=== PATIENT | female | born 1995 | race Caucasian/White ===

== ENCOUNTER 2016-08-21 13:08 | Outpatient (CLI) | payer OTHER ==
[2016-08-21] MEDS ORDERED: BUFFERED LIDOCAINE 10 ML SYRINGE IU ONE (15:06)
[2016-08-21] MEDS ORDERED: IOTHALAMATE MEGLUMINE 50 ML VIAL IVP ONE (15:06)
[2016-08-21] MEDS ORDERED: GADOPENTETATE DIMEGLUMINE 5 ML VIAL IVP ONE (15:06)
== END 2016-08-21 13:09 | disposition home or self-care (01) ==
DX: S42.291A Other displaced fracture of upper end of right humerus, initial encounter for closed fracture (principal); S43.491A Other sprain of right shoulder joint, initial encounter
CPT/HCPCS: 23350; 73222; 77002; Q9961

== ENCOUNTER 2017-06-12 17:15 | Emergency (ER) | payer OTHER ==
--- NOTE | 2017-06-12 17:45 | ED Physician Documentation ---
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 Over the last month she has had what feels like a spasm in the right low back which does not radiate. There is no weakness, numbness, or tingling in the extremities or saddle area. No fevers. There was no specific injury.) Review of Systems Constitutional: denies: Fever, Chills Respiratory: denies: Dyspnea, Cough GI: denies: Abdominal Pain, Nausea, Vomiting PD PAST MEDICAL HISTORY - Past Medical History Past Medical History: No - Past Surgical History Past Surgical History: Yes Ortho: Shoulder arthroplasty - Present Medications Home Medications: Ambulatory Orders Medication Instructions Recorded Confirmed Cyclobenzaprine [Flexeril] 10 mg PO TID PRN #20 tablet 06/12/17 Ibuprofen [Motrin] 800 mg PO Q8H PRN #30 tablet 06/12/17 - Allergies Allergies/Adverse Reactions: Allergies Allergy/AdvReac Type Severity Reaction Status Date / Time No Known Drug Allergies Allergy Verified 06/12/17 17:29 - Social History Does the pt smoke?: No Smoking Status: Never smoker Does the pt drink ETOH?: No Does the pt have substance abuse?: No - Immunizations Immunizations are current?: Yes - POLST Patient has POLST: No PD ED PE NORMAL - Vitals Vital signs reviewed: Yes - General General: Alert and oriented X 3, No acute distress - Back Back: No CVA TTP, No spinal TTP, Other (Tender to the right paralumbar musculature with palpable spasm) - Extremities Extremities: Other (The patient has equal and normal Achilles and patellar reflexes bilaterally. Normal sensation in all areas of the legs. Patient denies saddle anesthesia. Normal strength in flexion-extension at the ankles, knees, and flexion of the hips.) - Neuro Neuro: Alert and oriented X 3, Normal speech Results - Vitals Vitals: Vital Signs - 24 hr 06/12/17 17:27 Temperature 36.7 C Heart Rate 70 Respiratory 18 Rate O2 Saturation 100 Oxygen O2 Source Room air PD MEDICAL DECISION MAKING - ED course ED course: This patient has seemingly uncomplicated musculoskeletal back pain. The patient has no "red flags." Specifically denies IV drug use, fevers, incontinence, saddle anesthesia. Spinal epidural abscess was considered, given that the patient has no fever, is not diabetic, has no spinal tenderness, does not use IV drugs, and has no bilateral neurologic symptoms, the diagnosis of spinal epidural abscess is considered exceedingly unlikely. The [place] prescription monitoring program was queried with regard to this patient. No concerning findings were found. Departure - Departure Disposition: 01 Home, Self Care Clinical Impression: Back spasm Condition: Good Record reviewed to determine appropriate education?: Yes Instructions: ED Low Back Pain Injury Prescriptions: Cyclobenzaprine [Flexeril] 10 mg PO TID PRN #20 tablet PRN Reason: Pain Ibuprofen [Motrin] 800 mg PO Q8H PRN #30 tablet PRN Reason: PAIN &/OR FEVER Comments: Call your doctor to arrange a follow-up appointment, make the next available appointment. In the interim, return anytime if worse or if new symptoms develop.
[2017-06-12 17:49] VITALS: BP 112/67
== END 2017-06-12 17:57 | disposition home or self-care (01) ==
LOC: ED 17:15
DX: M62.830 Muscle spasm of back (principal)
CPT/HCPCS: 81001; 81003; 81025; 87086; 99283

== ENCOUNTER 2017-12-24 08:57 | Emergency (ER) | payer OTHER ==
[2017-12-24 09:25] LABS: BILIRUBIN,URINE NEGATIVE (NEGATIVE); GLUCOSE, URINE (UA) NEGATIVE (NEGATIVE); KETONES,URINE (UA) NEGATIVE (NEGATIVE); LEUKOCYTE ESTERASE, URINE NEGATIVE (NEGATIVE); NITRITE,URINE POSITIVE (NEGATIVE); OCCULT BLOOD,URINE MODERATE (NEGATIVE); PH,URINE 6.5 PH (5.0-7.5); PROTEIN,URINE NEGATIVE (NEGATIVE); UROBILINOGEN,URINE 0.2 (NORMAL) E.U./dL (NORMAL)
[2017-12-24 09:27] LABS: CLARITY,URINE HAZY (CLEAR)
[2017-12-24 09:28] LABS: HCG UR QUAL NEGATIVE
[2017-12-24] MEDS ORDERED: DEXAMETHASONE 10 MG/ML VIAL PO STA (09:29)
[2017-12-24 09:38] LABS: BACTERIA,URINE Many /HPF (None Seen); RBC,URINE 0-5 /HPF (0-5); SQUAMOUS EPITHELIAL CELL,UR FEW Squamous (<= Few)
[2017-12-24] MEDS ORDERED: CHERRY SYRUP 10 ML UDC PO ONE (09:44)
--- NOTE | 2017-12-24 11:34 | Ultrasound Report ---
PELVIC ULTRASOUND: 12/24/2017 CLINICAL INDICATION: Pelvic pain. TECHNIQUE: Transabdominal pelvic ultrasound performed for global evaluation. Transvaginal pelvic ultrasound performed for detailed evaluation. Real-time scanning performed and static images obtained with Doppler. FINDINGS: The uterus is anteverted, measuring 7.2 x 4.9 x 3.8 cm. The endometrium measures 7 mm. No focal myometrial lesion is present. The ovaries are normal, with the right measuring 5.0 x 3.7 x 1.8 cm, and the left measuring 4.0 x 3.4 x 2.5 cm. Both ovaries demonstrate normal flow. No free fluid is present. IMPRESSION: NORMAL PELVIC ULTRASOUND. TD: 12/24/2017 11:13
--- NOTE | 2017-12-24 12:36 | ED Physician Documentation ---
PD HPI FEMALE - Stated complaint Stated Complaint: ABD/PELVIC PX W/HEADACHE - Chief complaint Chief Complaint: Abd Pain - History obtained from History obtained from: Patient, Family - History of Present Illness Timing - onset: How many days ago (8) Timing - duration: Days (8) Timing - details: Gradual onset, Still present Associated symptoms: Pelvic pain Contributing factors: No: [employer]ICAL SCIENCES INSTRUCTOR History: G (0), P (0). No: Ovarian cysts Similar symptoms before: Has not had sx before Recently seen: Clinic - Additional information Additional information: 23-year-old female with 8 days of pelvic pain has persistence of her pain and she denies any vaginal discharge. She does state that she has pain with intercourse and she is sexually active with a single partner. She believes she was evaluated for chlamydia in November and this was negative. Review of Systems Constitutional: reports: Chills. denies: Fever Eyes: denies: Decreased vision Ears: denies: Ear pain Nose: reports: Rhinorrhea / runny nose, Congestion Throat: denies: Sore throat Cardiac: denies: Chest pain / pressure, Palpitations Respiratory: reports: Cough. denies: Dyspnea GI: reports: Abdominal Pain, Nausea : denies: Dysuria, Frequency Skin: denies: Rash Musculoskeletal: denies: Neck pain, Back pain, Extremity pain PD PAST MEDICAL HISTORY - Past Surgical History Past Surgical History: Yes Ortho: Shoulder arthroplasty - Present Medications Home Medications: Ambulatory Orders Medication Instructions Recorded Confirmed No Known Home Medications [No 12/24/17 12/24/17 Known Home Medications] - Allergies Allergies/Adverse Reactions: Allergies Allergy/AdvReac Type Severity Reaction Status Date / Time Sulfa (Sulfonamide Allergy Hives Verified 12/24/17 09:03 Antibiotics) - Social History Does the pt smoke?: No Smoking Status: Never smoker Does the pt drink ETOH?: No Does the pt have substance abuse?: No - Immunizations Immunizations are current?: Yes - POLST Patient has POLST: No PD ED PE NORMAL - Vitals Vital signs reviewed: Yes (febrile ) - General General: Alert and oriented X 3, No acute distress, Well developed/nourished - HEENT HEENT: Atraumatic, PERRL, EOMI, Other (The left TM is mildly inflamed and the right is clear) - Neck Neck: Supple, no meningeal sign, No bony TTP - Cardiac Cardiac: RRR, No murmur - Respiratory Respiratory: No respiratory distress, Clear bilaterally - Abdomen Abdomen: Soft, Other (mild suprapubic tenderness) - Female 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 ) - Back Back: No CVA TTP, No spinal TTP - Derm Derm: Normal color, No rash - Extremities Extremities: No deformity, No edema - Neuro Neuro: Alert and oriented X 3, No motor deficit, No sensory deficit, Normal speech Eye Opening: Spontaneous Motor: Obeys Commands Verbal: Oriented GCS Score: 15 - Psych Psych: Normal mood, Normal affect Results - Vitals Vitals: Vital Signs - 24 hr 12/24/17 12/24/17 09:00 11:16 Temperature 37.9 C H Heart Rate 96 88 Respiratory 16 16 Rate Blood Pressure 128/60 118/74 O2 Saturation 99 97 Oxygen O2 Source Room air - Labs Labs: Laboratory Tests 12/24/17 12/24/17 09:01 09:10 Urine Color YELLOW Urine Clarity HAZY Urine pH 6.5 Ur Specific [place] 1.015 1.015 Urine Protein NEGATIVE Urine Glucose (UA) NEGATIVE Urine Ketones NEGATIVE Urine Occult Blood MODERATE H Urine Nitrite POSITIVE H Urine Bilirubin NEGATIVE Urine Urobilinogen 0.2 (NORMAL) Ur Leukocyte Esterase NEGATIVE Urine RBC 0-5 Urine WBC 0-3 Ur Squamous Epith Cells FEW Squamous Urine Bacteria Many H Ur Microscopic Review INDICATED Urine Culture Comments INDICATED Urine HCG, Qual NEGATIVE PD MEDICAL DECISION MAKING - ED course Complexity details: reviewed results, re-evaluated patient, considered differential, d/w patient, d/w family ED course: 22-year-old female with pelvic pain a URI appears to have otitis on exam and she is administered dexamethasone orally. Her pelvic pain was without discharge and she claims a single partner and ultrasound was done to rule out torsion and cyst. This was a negative study and subsequently a pelvic exam was performed showing a milky white discharge and samples were obtained for chlamydia and GC. She is treated for chlamydia and GC with 250 mg of Rocephin IM and 1 g of azithromycin. This should be adequate for treatment of her otitis as well. Departure - Departure Disposition: 01 Home, Self Care Clinical Impression: Sexually transmitted disease Otitis media Qualifiers: Otitis media type: suppurative Chronicity: acute Laterality: left Recurrence: not specified as recurrent Spontaneous tympanic membrane rupture: without spontaneous rupture Qualified Code(s): H66.002 - Acute suppurative otitis media without spontaneous rupture of ear drum, left ear Condition: Stable Instructions: ED Otitis Media Acute Adult, ED Chlamydia Female Follow-Up: SANDY PIERSON DO [Primary Care Provider] -
[2017-12-24] MEDS ORDERED: LIDOCAINE 1% 2 ML VIAL SUBQ ONE (12:40)
[2017-12-24] MEDS ORDERED: cefTRIAXone 250 MG VIAL IM STA (12:40)
[2017-12-24] MEDS ORDERED: AZITHROMYCIN 250 MG TABLET PO STA (12:40)
[2017-12-24 13:38] VITALS: BP 116/62
== END 2017-12-24 13:33 | disposition home or self-care (01) ==
LOC: ED 08:57
DX: Z20.2 Contact with and (suspected) exposure to infections with a predominantly sexual mode of transmission (principal); H66.002 Acute suppurative otitis media without spontaneous rupture of ear drum, left ear
CPT/HCPCS: 76830; 76856; 81001; 81025; 87077; 87086; 87181; 87491; 87591; 93976; 96372; 99283; A9270; 81003

== ENCOUNTER 2018-08-05 20:35 | Outpatient (CLI) | payer BC ==
--- NOTE | 2018-08-06 15:44 | Ultrasound Report ---
Reason: PRENANCY EXAMINATION OR TEST, POSITIVE Procedure Date: 08/05/2018 Accession Number: [id number] / [id number] Procedure: US - OB First Trimester CPT Code: FULL RESULT: EXAM: FIRST TRIMESTER OBSTETRIC ULTRASOUND (Less than 11 weeks) EXAM DATE: 08/05/2018 09:09 PM. CLINICAL HISTORY: examination or test, positive. LMP: Unsure. COMPARISONS: None. TECHNIQUE: Transabdominal ultrasound examination with static image documentation. ASSESSMENT: Gestational Sac: Single intrauterine. Mean gestational sac diameter: 23 mm. Embryo: CRL (crown-rump length) 15.5 mm = 7 weeks 6 days. Cardiac activity: 159 beats per minute. Yolk sac: Not seen. Amniotic fluid: Not accurately assessed at this gestational age. Early placenta: Not visible at this gestational age. Other: No perigestational fluid collection demonstrated. MATERNAL STRUCTURES: Uterus: Anteverted. Unremarkable. Cervix: Closed. Right Ovary/Adnexa: The ovary measures 5.1 x 2.9 x 2.3 cm, volume 17.7 cc. 2.2 x 2.1 x 1.9 cm cystic structure, likely corpus luteum. Left Ovary/Adnexa: The ovary measures 3.1 x 1.5 x 2.4 cm, volume 5.8 cc. Unremarkable. Free Fluid: None. Other: None. IMPRESSION: 1. Single viable intrauterine at EGA 7 weeks 6 days with BERNARD 03/18/2019 based on crown-rump length. 2. Assigned dating is BERNARD 03/18/2019 based on current ultrasound. [facility]
== END 2018-08-05 20:36 | disposition home or self-care (01) ==
LOC: DI 20:35
PROVIDERS: ATTEND Registered Nurse
DX: Z32.01 Encounter for pregnancy test, result positive (principal); Z3A.01 Less than 8 weeks gestation of pregnancy
CPT/HCPCS: 76801

== ENCOUNTER 2018-08-11 08:00 | Outpatient (CLI) | payer BC ==
[2018-08-11 19:04] LABS: BASOPHILS % (AUTO) 0.5 %; BILIRUBIN,URINE NEGATIVE (NEGATIVE); EOSINOPHILS # (AUTO) 0.1 10^3/uL (0.0-0.7); EOSINOPHILS % (AUTO) 1.3 %; GLUCOSE, URINE (UA) NEGATIVE (NEGATIVE); HGB - HEMOGLOBIN 12.7 g/dL (12.0-16.0); KETONES,URINE (UA) NEGATIVE (NEGATIVE); LEUKOCYTE ESTERASE, URINE NEGATIVE (NEGATIVE); LYMPHOCYTES # (AUTO) 2.5 10^3/uL (1.5-3.5); LYMPHOCYTES % (AUTO) 24.9 %; MEAN CORPUSCULAR HEMOGLOBIN 31.8 pg (27.0-31.0); MEAN CORPUSCULAR HGB CONC 33.8 g/dL (32.0-36.0); MEAN CORPUSCULAR VOLUME 94.1 fL (81.0-99.0); MONOCYTES # (AUTO) 0.4 10^3/uL (0.0-1.0); MONOCYTES % (AUTO) 3.9 %; NEUTROPHILS # (AUTO) 6.9 10^3/uL (1.5-6.6); NEUTROPHILS % (AUTO) 69.4 %; NITRITE,URINE NEGATIVE (NEGATIVE); OCCULT BLOOD,URINE NEGATIVE (NEGATIVE); PLT - PLATELET COUNT 165 10^3/uL (130-450); PROTEIN,URINE NEGATIVE (NEGATIVE); RED CELL DISTRIBUTION WIDTH 12.5 % (12.0-15.0); UROBILINOGEN,URINE 0.2 (NORMAL) E.U./dL (NORMAL)
[2018-08-11 19:48] LABS: BACTERIA,URINE None Seen /HPF (None Seen); CLARITY,URINE CLEAR (CLEAR); RBC,URINE None Seen /HPF (0-5); SQUAMOUS EPITHELIAL CELL,UR RARE Squamous (<= Few)
[2018-08-12 12:32] LABS: HIV AG/AB 4TH GEN NON-REACTIVE (NON-REACTIVE)
[2018-08-12 13:01] LABS: HEPATITIS B SURFACE ANTIGEN NON-REACTIVE (NON-REACTIVE)
[2018-08-12 13:02] LABS: HEPATITIS C ANTIBODY NON-REACTIVE (NON-REACTIVE)
== END 2018-08-11 23:59 | disposition home or self-care (01) ==
LOC: LAB.N 08:00
PROVIDERS: ATTEND Nurse Practitioner Obstetrics & Gynecology
DX: Z36.89 Encounter for other specified antenatal screening (principal); Z11.3 Encounter for screening for infections with a predominantly sexual mode of transmission
CPT/HCPCS: 36415; 80306; 81001; 81599; 85025; 86762; 86803; 86850; 86900; 86901; 87086; 87340; 87389; 87491; 87591

== ENCOUNTER 2018-08-11 08:00 | Outpatient (CLI) | payer BC ==
[2018-08-11 18:39] LABS: MUDS CUTOFF CONCENTRATIONS CUTOFF CONC BELOW:
[2018-08-11 20:03] LABS: AMPHETAMINE SCREEN,URINE NEGATIVE (NEGATIVE); BENZODIAZEPINES SCREEN, URINE NEGATIVE (NEGATIVE); COCAINE SCREEN URINE NEGATIVE (NEGATIVE); METHADONE SCREEN, URINE NEGATIVE (NEGATIVE); METHAMPHETAMINES SCREEN, URINE NEGATIVE (NEGATIVE); OPIATE SCREEN, URINE NEGATIVE (NEGATIVE); OXYCODONE SCREEN, URINE NEGATIVE (NEGATIVE); PROPOXYPHENE SCREEN, URINE NEGATIVE (NEGATIVE); TRICYCLIC ANTIDEPRESSANT,URINE NEGATIVE (NEGATIVE)
== END 2018-08-11 23:59 | disposition home or self-care (01) ==
LOC: LAB.R 08:00
PROVIDERS: ATTEND Nurse Practitioner Obstetrics & Gynecology
DX: Z11.3 Encounter for screening for infections with a predominantly sexual mode of transmission (principal); Z36.89 Encounter for other specified antenatal screening
CPT/HCPCS: 80306; 87491; 87591

== ENCOUNTER 2018-09-14 12:52 | Outpatient (CLI) | payer SELFPAY | END 2018-09-14 12:53 | disposition home or self-care (01) | LOC: LAB 12:52 | PROVIDERS: ATTEND Nurse Practitioner Obstetrics & Gynecology | DX: Z13.79 Encounter for other screening for genetic and chromosomal anomalies (principal) | CPT/HCPCS: 36415 ==